=== PATIENT | female | born 1995 | race Two or more races ===

== ENCOUNTER 2016-09-07 11:27 | Emergency (ER) | payer OTHER ==
[2016-09-07] MEDS ORDERED: METOCLOPRAMIDE HCL 5 MG/ML 2ML VIAL ONE (12:36)
[2016-09-07] MEDS ORDERED: DIPHENHYDRAMINE HCL 50 MG/1 ML VIAL ONE (12:36)
[2016-09-07] MEDS ORDERED: KETOROLAC TROMETHAMINE 15 MG/ML VIAL ONE (12:36)
== END 2016-09-07 13:54 | disposition home or self-care (01) ==
LOC: ED 11:27
DX: R51 Headache (principal); R20.9 Unspecified disturbances of skin sensation; K13.0 Diseases of lips
CPT/HCPCS: 87529; 96375 ×2; 99283 ×2; 96374; J1200; J2765; J1885